=== PATIENT | female | born 1975 | race American Indian/Alaskan Native ===

== ENCOUNTER 2016-06-19 13:21 | Emergency (ER) | payer OTHER ==
[2016-06-19 14:26] LABS: Basophils % (Auto) 0.6 % (0.0-1.8); Eosinophils % (Auto) 2.1 % (0.0-4.3); Hematocrit 43.5 % (30.3-42.9); Mean Corpuscular HGB Conc 32 % (30-34); Mean Corpuscular Hemoglobin 30 pg (28-32); Mean Corpuscular Volume 93 fl (79-97); Platelet Count 354 K/mm3 (140-440); Red Blood Count 4.71 M/mm3 (3.65-5.03); Red Cell Distribution Width 13.8 % (13.2-15.2); White Blood Count 5.7 K/mm3 (4.5-11.0)
[2016-06-19 14:44] LABS: Bacteria,Urine 2+ /HPF (Negative); Bilirubin,Urine NEG (Negative); Blood,Urine LG (Negative); Ketones,Urine NEG (Negative); Leukocyte Esterase,Urine TR (Negative); Mucus,Urine FEW /HPF; Nitrite,Urine NEG (Negative); Urobilinogen,Urine < 2.0 mg/dL (<2.0)
--- NOTE | 2016-06-19 18:48 | Ultrasound Report ---
FINAL REPORT PROCEDURE: Transabdominal pelvic ultrasound. TECHNIQUE: Real-time transabdominal sonography in multiple planes of pelvis was performed with image documentation. This examination was performed without Doppler. Vascular abnormalities, including ovarian torsion, will not be detectable without Doppler evaluation. CPT 22916 HISTORY: Vaginal bleeding, . COMPARISON: No prior studies are available for comparison. FINDINGS: The uterus measures 10.4 centimeters x 4.7 centimeters x 5.0 centimeters. The myometrium appears uniform. The endometrial echo complex measures 1.8 centimeters. There is no evidence of an intrauterine gestational sac. Correlation with a quantitative beta HCG value is suggested. Both ovaries appear normal in size. There is no fluid in the cul-de-sac. IMPRESSION: No evidence of an intrauterine .
--- NOTE | 2016-06-19 18:50 | Ultrasound Report ---
FINAL REPORT PROCEDURE: Transvaginal pelvic ultrasound. TECHNIQUE: Real-time transvaginal sonography in multiple planes of the pelvis was performed with image documentation. This examination was performed without Doppler. Vascular abnormalities, including ovarian torsion, will not be detectable without Doppler evaluation. CPT 52198 HISTORY: Vaginal bleeding, . COMPARISON: No prior studies are available for comparison. FINDINGS: The uterus appears normal in size. The myometrium is fairly uniform. The endometrial echo complex is thickened measuring 1.8 centimeters. There is no definite intrauterine gestational sac. There is a small cyst in the right ovary measuring 1.5 centimeters. The left ovary is not visualized. There is no fluid in the cul-de-sac. Correlation with the patient's quantitative beta HCG value is recommended. IMPRESSION: Small right ovarian cyst. No evidence of an intrauterine .
[2016-06-19] MEDS ORDERED: TYLENOL #3 PO ONE (20:56)
--- NOTE | 2016-06-19 20:56 | Emergency Department Report ---
ED Female HPI - General Chief complaint: Vaginal Bleeding Stated complaint: 18 WKS PREG/BLEEDING/PAIN Time Seen by Provider: 06/19/16 20:50 Source: patient, RN notes reviewed Mode of arrival: Ambulatory Limitations: No Limitations - History of Present Illness Initial comments: This is a 41-year-old female. She is previously unknown to me. She is 2, para 1. Last menstrual period is February 10. Process Worker: Dr. Parker The patient denies chronic medical conditions. She presents to the ER with abdominal cramping, vaginal bleeding. Symptoms started today. The bleeding is constant but improving. No dizziness or lightheadedness. No chest pain or shortness of breath. No nausea, vomiting diarrhea. No right lower quadrant pain. No hematemesis of bright red blood per rectum. Patient reports having 2 previous ultrasounds as an outpatient, cannot recall the results of the ultrasounds. The abdominal cramping is crampy and achy in nature, does not radiate anywhere, increases with palpation, and decreases with rest. Patient had unremarkable physical exam, vaginal bleeding was noted, lower abdominal tenderness was noted, urinalysis was not consistent with urinary tract infection, and a transabdominal pelvic ultrasound did not damage straight evidence of an intrauterine . Patient remained hemodynamically stable while in the emergency department, quantitative hCG was 36. A page was placed to the patient's private audio video repairer, however her group did not answer the call. I then discussed the patient's care with the on-call audio video repairer, Dr. Gray. The patient is encouraged to rest and avoid heavy lifting, not engage in sexual activity, and follow-up in 48 hours for repeat physical examination and quantitative hCG. Complaint: vaginal bleeding, pelvic pain -: Gradual Location: suprapubic Severity: moderate Quality: cramping Consistency: intermittent Improves with: other (rest) Worsens with: movement Are you Now?: Yes Associated Symptoms: vaginal bleeding, abdominal pain. denies: vaginal discharge, nausea/vomiting, fever/chills, headaches, loss of appetite, dysuria, hematuria, rash, shortness of breath, syncope, weakness - Related Data Sexually active: Yes Allergies Allergy/AdvReac Type Severity Reaction Status Date / Time No Known Allergies Allergy Unverified 06/19/16 13:34 ED Review of Systems ROS: Stated complaint: 18 WKS PREG/BLEEDING/PAIN Other details as noted in HPI Constitutional: denies: fever, malaise Eyes: denies: vision change ENT: denies: epistaxis Respiratory: denies: cough Cardiovascular: denies: chest pain Gastrointestinal: denies: abdominal pain Genitourinary: abnormal menses. denies: urgency, dysuria Musculoskeletal: denies: back pain Skin: denies: lesions Neurological: denies: weakness ED Past Medical Hx - Past Medical History Previous Medical History?: No - Surgical History Past Surgical History?: No - Social History Smoking Status: Never Smoker Substance Use Type: None ED Physical Exam - General Limitations: No Limitations General appearance: alert, in no apparent distress - Head Head exam: Present: atraumatic, normocephalic - Eye Eye exam: Present: normal appearance, EOMI. Absent: nystagmus - ENT ENT exam: Present: normal exam, normal orophraynx, mucous membranes moist, normal external ear exam - Neck Neck exam: Present: normal inspection, full ROM. Absent: tenderness, meningismus - Respiratory Respiratory exam: Present: normal lung sounds bilaterally. Absent: respiratory distress, wheezes, rales, rhonchi, stridor, chest wall tenderness, accessory muscle use, decreased breath sounds, prolonged expiratory - Cardiovascular Cardiovascular Exam: Present: regular rate, normal rhythm, normal heart sounds. Absent: bradycardia, tachycardia, irregular rhythm, systolic murmur, diastolic murmur, rubs, gallop - GI/Abdominal GI/Abdominal exam: Present: soft, tenderness, normal bowel sounds, other (there is suprapubic and right lower quadrant tenderness, there is no rebound, guarding or peritoneal signs.). Absent: distended, guarding, rebound, rigid, pulsatile mass - External exam: Present: normal external exam Speculum exam: Present: normal speculum exam, vaginal bleeding Bi-manual exam: Present: normal bi-manual exam, other (escorted by CARLOS Jarrell) . Absent: cervical motion tendernes, adnexal tenderness, adnexal mass, uterine enlargement, uterine tenderness - Extremities Exam Extremities exam: Present: normal inspection, full ROM, normal capillary refill. Absent: pedal edema, joint swelling, calf tenderness - Back Exam Back exam: Present: normal inspection, full ROM. Absent: tenderness, CVA tenderness (R), CVA tenderness (L), muscle spasm, paraspinal tenderness, vertebral tenderness - Neurological Exam Neurological exam: Present: alert, oriented X3, normal gait, other (Extraocular movements intact. Tongue midline. No facial droop. Facial sensation intact to light touch in the V1, V2, V3 distribution bilaterally. 5 and 5 strength in 4 extremities.. Sensation is intact to light touch in 4 extremities.). Absent : motor sensory deficit - Psychiatric Psychiatric exam: Present: normal affect, normal mood - Skin Skin exam: Present: warm, dry, intact, normal color. Absent: rash ED Course Vital Signs 06/19/16 06/19/16 06/19/16 13:34 20:51 21:17 Temperature 97.2 F L 98 F Pulse Rate 83 88 Respiratory 18 16 18 Rate Blood Pressure 130/80 Blood Pressure 112/77 [Left] O2 Sat by Pulse 100 100 100 Oximetry ED Medical Decision Making - Lab Data Result diagrams: 06/19/16 13:47 Vital Signs 06/19/16 06/19/16 13:34 21:17 Temperature 97.2 F L 98 F Pulse Rate 83 88 Respiratory 18 18 Rate Blood Pressure 130/80 Blood Pressure 112/77 [Left] O2 Sat by Pulse 100 100 Oximetry Lab Results 06/19/16 06/19/16 06/19/16 Range/Units 13:47 13:47 14:00 WBC 5.7 (4.5-11.0) K/mm3 RBC 4.71 (3.65-5.03) M/mm3 Hgb 14.0 (10.1-14.3) gm/dl Hct 43.5 H (30.3-42.9) % MCV 93 (79-97) fl MCH 30 (28-32) pg MCHC 32 (30-34) % RDW 13.8 (13.2-15.2) % Plt Count 354 (140-440) K/mm3 Lymph % (Auto) 41.3 H (13.4-35.0) % [place] % (Auto) 8.8 H (0.0-7.3) % Eos % (Auto) 2.1 (0.0-4.3) % Baso % (Auto) 0.6 (0.0-1.8) % Lymph # 2.3 (1.2-5.4) K/mm3 [place] # 0.5 (0.0-0.8) K/mm3 Eos # 0.1 (0.0-0.4) K/mm3 Baso # 0.0 (0.0-0.1) K/mm3 Seg Neutrophils % 47.2 (40.0-70.0) % Seg Neutrophils # 2.7 (1.8-7.7) K/mm3 HCG, Quant 36.91 H (0-4) mIU/mL Urine Color (Yellow) Urine Turbidity (Clear) Urine pH (5.0-7.0) Ur Specific [place] (1.003-1.030) Urine Protein (Negative) mg/dL Urine Glucose (UA) (Negative) mg/dL Urine Ketones (Negative) mg/dL Urine Blood (Negative) Urine Nitrite (Negative) Urine Bilirubin (Negative) Urine Urobilinogen (<2.0) mg/dL Ur Leukocyte Esterase (Negative) Urine WBC (Auto) (0.0-6.0) /HPF Urine RBC (Auto) (0.0-6.0) /HPF U Epithel Cells (Auto) (0-13.0) /HPF Urine Bacteria (Auto) (Negative) /HPF Urine Mucus /HPF Blood Type O POSITIVE Antibody Screen TNR BHARATHI Antibody Screen Negative Screen Cancelled Ord Rhogam Gestat Weeks Rh pos WEEKS 06/19/16 Range/Units 14:19 WBC (4.5-11.0) K/mm3 RBC (3.65-5.03) M/mm3 Hgb (10.1-14.3) gm/dl Hct (30.3-42.9) % MCV (79-97) fl MCH (28-32) pg MCHC (30-34) % RDW (13.2-15.2) % Plt Count (140-440) K/mm3 Lymph % (Auto) (13.4-35.0) % [place] % (Auto) (0.0-7.3) % Eos % (Auto) (0.0-4.3) % Baso % (Auto) (0.0-1.8) % Lymph # (1.2-5.4) K/mm3 [place] # (0.0-0.8) K/mm3 Eos # (0.0-0.4) K/mm3 Baso # (0.0-0.1) K/mm3 Seg Neutrophils % (40.0-70.0) % Seg Neutrophils # (1.8-7.7) K/mm3 HCG, Quant (0-4) mIU/mL Urine Color Rayna (Yellow) Urine Turbidity Clear (Clear) Urine pH 7.0 (5.0-7.0) Ur Specific [place] 1.009 (1.003-1.030) Urine Protein 30 mg/dl (Negative) mg/dL Urine Glucose (UA) Neg (Negative) mg/dL Urine Ketones Neg (Negative) mg/dL Urine Blood Lg (Negative) Urine Nitrite Neg (Negative) Urine Bilirubin Neg (Negative) Urine Urobilinogen < 2.0 (<2.0) mg/dL Ur Leukocyte Esterase Tr (Negative) Urine WBC (Auto) 4.0 (0.0-6.0) /HPF Urine RBC (Auto) 5.0 (0.0-6.0) /HPF U Epithel Cells (Auto) 2.0 (0-13.0) /HPF Urine Bacteria (Auto) 2+ (Negative) /HPF Urine Mucus Few /HPF Blood Type Antibody Screen BHARATHI Antibody Screen Screen Ord Rhogam Gestat Weeks WEEKS - Radiology Data Radiology results: report reviewed, image reviewed Obstetrics ultrasound demonstrates no evidence of intrauterine . There is no evidence of subchorionic hemorrhage - Medical Decision Making patient who is hemodynamically stable, Rh+, does not require RhoGAM, most likely with completed miscarriage. The patient's care has been discussed with consulting gynecology. She is suitable to follow-up as an outpatient at this time. Critical care attestation.: If time is entered above; I have spent that time in minutes in the direct care of this critically ill patient, excluding procedure time. ED Disposition Clinical Impression: Miscarriage Disposition: DISCHARGED TO HOME OR SELFCARE Is pt being admited?: No Does the pt Need Aspirin: No Condition: Stable Instructions: Spontaneous Miscarriage (ED) Additional Instructions: Rest and avoid heavy lifting. Avoid strenuous physical activity. Avoid sexual activity. Follow-up in 2 days for repeat test, physical exam, quantitative hCG. Follow-up either with her private audio video repairer, this emergency department, or with the listed audio video repairer. Return to the ER right away with new pain, worsened pain, migration of pain, fevers or chills, intractable nausea or vomiting, inability to tolerate liquid feeds. Take acetaminophen every 4 hours, or ibuprofen every 6 hours as needed for pain. Referrals: SHANTAL LEWIS MD [Primary Care Provider] - 3-5 Days SUSHILA SANZ MD [Staff Physician] - 3-5 Days
[2016-06-19 21:18] VITALS: BP 112/77
== END 2016-06-19 22:30 | disposition home or self-care (01) ==
LOC: ED 13:21
DX: O03.9 Complete or unspecified spontaneous abortion without complication (principal)
CPT/HCPCS: 36415; 76801; 76817; 81001; 84702; 85025; 86850; 86900; 86901; 99284